=== PATIENT | female | born 1970 | race Caucasian/White ===

== ENCOUNTER → 2018-06-08 | Outpatient (CLI) | payer OTHER ==
--- NOTE | 2018-06-08 16:18 | PCVCIMAG ---
APPROVED REPORT Study performed: 06/08/2018 14:58:10 Exam: Stress Echocardiogram Indication: Chest pain , Palpitations Patient Location: Echo lab Stress Nurse: Marlee Dupont RN Room #: 1 Status: routine Ht: 5 ft 4 in HR: 80 bpm BP: 112/72 mmHg Rhythm: NSR Medical History Medical History: HYPOTENSION,BRADYCARDIA,PALPITATIONS Previous Cardiac Procedures: NONE Pretest Chest Pain Characteristics: No chest pain Exercise History: Indeterminate Procedure The patient underwent an Exercise Stress Test using the Pilo Protocol. Blood pressure, heart rate, and EKG were monitored. An Echocardiogram was performed by boiler/chiller technician in four stages in quad fashion. At peak stress, four selected images were obtained and placed side by side with resting images for comparison. Stress Test Details Stress Test: Exercise stress testing was performed using a Pilo protocol. HR Resting HR: 80 bpmMax Heart Rate (APMHR): 171 bpm Max HR Achieved: 151 bpmTarget HR (85% APMHR): 145 bpm % of APMHR: 88 Recovery HR: 79 bpm HR response to stress: Normal HR response to stress BP Resting BP: 112/72 mmHg Max BP: 170/74 mmHg Recovery BP: 136/82 mmHg BP response to stress: Normal blood pressure response to stress. ECG Resting ECG: Sinus Rhythm Stress ECG: Sinus Rhythm ST Change: Non-ischemic Arrhythmia: RARE PAC Recovery ECG: Sinus Rhythm Recovery ST Change: Non-ischemic Recovery Arrhythmia: None Clinical Reason for Termination: Maximal effort Stress Symptoms: Leg Fatigue Exercise duration: 9 min 55 sec Highest Stage Achieved: Stage 4: 4.2 mph at 16% grade. Exercise capacity: 13.0 METs Overall Exercise Capacity for Age: Good Scale: Active Angina Score: Non-Limiting No complications. Stress ECG Conclusion The patient exercised according to the PILO protocol for 9:55 mins; achieving a work level of 13.0 METS. The resting heart rate of 81 bpm john to a maximum heart rate of 151 bpm. This value represent 88% of the maximal, age-predicted heart rate. The resting blood pressure of 112/72 mmHg, john to a maximum blood pressure of 170/74 mmHg. The exercise test was stopped due to fatigue and dyspnea. The patient denied chest pain during exerise but stated during recovery pain 3-4 on a scale of 10. Dr Roblero and the nurse were informed of this. Pre-Stress Echo The resting Echocardiogram showed normal left ventricular contractility with an estimated Ejection Fraction of about 55-60%. Normal wall motion in all segments on baseline images. Post-Stress Echo The stress Echocardiogram showed normal left ventricular contractility with an estimated Ejection Fraction of about 65-70%. Normal augmentation of wall motion in all segments on post stress images. Clinical No clinical or ECG evidence for ischemia. Conclusion Clinical Response: Non-ischemic Exercise Capacity: Average Stress ECG Response: Non-ischemic Stress Echo Images: Non-ischemic No echocardiographic evidence for exercise induced ischemia. No prior study available for comparison. <Conclusion> No echocardiographic evidence for exercise induced ischemia.
--- NOTE | 2018-06-08 16:30 | PCVCIMAG ---
APPROVED REPORT Study performed: 06/08/2018 14:16:38 EXAM: Comprehensive 2D, Doppler, and color-flow Echocardiogram [facility] BSA: 1.63 HR: 80 bpmBP: 112/72 mmHg Rhythm: NSR Other Information Study Quality: Good Indications Hypotension Palpitations Chest Pain 2D Dimensions IVSd: 6.65 (7-11mm)LVOT Diam: 21.03 (18-24mm) LVDd: 44.87 mm PWd: 6.56 (7-11mm)Ascending Ao: 34.39 (22-36mm) LVDs: 31.04 (25-40mm) Left Atrium: 29.75 (27-40mm) Aortic Root: 28.38 mm LV Single Plane 4CH: 66.49 % LV Single Plane 2CH: 60.58 % Volumes Left Atrial Volume (Systole) Single Plane 4CH: 61.33 mLSingle Plane 2CH: 58.81 mL Biplane LA Volume: 61.00 mLLA ESV Index: 37.00 mL/m2 Aortic Valve AoV Peak Osvaldo.: 1.34 m/s AO Peak Gr.: 7.13 mmHgLVOT Max P.18 mmHg LVOT Max V: 1.02 m/s SYDNI Vmax: 2.66 cm2 Mitral Valve E/A Ratio: 1.0 MV Decel. Time: 116.82 ms MV E Max Osvaldo.: 0.87 m/s MV A Osvaldo.: 0.86 m/s IVRT: 107.27 ms TDI E/Lateral E': 7.91E/Medial E': 10.88 Medial E' Osvaldo.: 0.08 m/s Lateral E' Osvaldo.: 0.11 m/s Pulmonary Vein P Vein S: 0.57 m/sP Vein A: 0.26 m/s P Vein D: 0.54 m/sP Vein A Dur.: 100.3 msec P Vein S/D Ratio: 1.06 Tricuspid Valve TR Peak Osvaldo.: 2.29 m/s TR Peak Gr.: 20.94 mmHg TV Vmax: 0.97 m/sPA Pressure: 28.00 mmHg Left Ventricle The left ventricle is normal size. There is normal LV segmental wall motion. There is normal left ventricular wall thickness. Left ventricular systolic function is normal. The left ventricular ejection fraction is within the normal range. LVEF is 60-65%. The left ventricular diastolic function is normal. Right Ventricle The right ventricle is normal size. The right ventricular systolic function is normal. Atria The left atrium size is normal. The right atrium size is normal. Aortic Valve Aortic valve is trileaflet. The aortic valve is normal in structure. Trace aortic regurgitation. There is no aortic valvular stenosis. Mitral Valve The mitral valve is normal in structure. There is no mitral valve regurgitation noted. No evidence of mitral valve stenosis. Tricuspid Valve The tricuspid valve is normal in structure. Mild tricuspid regurgitation with a PA pressure of 28 mmHg. Pulmonic Valve The pulmonary valve is normal in structure. There is no pulmonic valvular regurgitation. Great Vessels The aortic root is normal in size. Ascending aorta is normal in caliber. IVC is normal in size and collapses >50% with inspiration. Pericardium There is no pericardial effusion. There is no pleural effusion. <Conclusion> The left ventricle is normal size. There is normal left ventricular wall thickness. Left ventricular systolic function is normal. The right ventricle is normal size. The left atrium size is normal. Trace aortic regurgitation. The mitral valve is normal in structure. Mild tricuspid regurgitation with a PA pressure of 28 mmHg.
== END | disposition home or self-care (01) ==
LOC: PCVCIMAG 14:12
PROVIDERS: ATTEND Internal Medicine Cardiovascular Disease
DX: I07.1 Rheumatic tricuspid insufficiency (principal); I95.1 Orthostatic hypotension; K21.9 Gastro-esophageal reflux disease without esophagitis; R00.2 Palpitations; R07.9 Chest pain, unspecified; R00.1 Bradycardia, unspecified; Z88.8 Allergy status to other drugs, medicaments and biological substances; Z79.899 Other long term (current) drug therapy
CPT/HCPCS: 93306; 93351